=== PATIENT | female | born 1975 | race Caucasian/White ===

== ENCOUNTER 2020-08-12 11:44 | Emergency (ER) | payer OTHER ==
[~2020-08-12] VITALS: Ht 167.6 cm; Wt 76.7 kg
[~2020-08-12 11:44] MED LIST: N
[2020-08-12] MEDS ORDERED: LEXAPRO5 MG PO (11:53)
[2020-08-12] MEDS ORDERED: GUAIFENESIN200 MG PO (14:52)
== END 2020-08-12 15:05 | disposition home or self-care (01) ==
LOC: ER 11:44
DX: J06.9 Acute upper respiratory infection, unspecified (principal); J31.0 Chronic rhinitis; R53.81 Other malaise